=== PATIENT | female | born 1985 | race Caucasian/White ===

== ENCOUNTER → 2017-09-23 16:07 | Outpatient (CLI) | payer OTHER, MEDICAID, SELFPAY ==
--- NOTE | 2017-09-23 16:10 | DI.RAD.S_ITS ---
PROCEDURE: XR CERVICAL SPINE 4V OR 5V INDICATIONS: Cervical spondylosis with left upper extremity pain TECHNIQUE: 5 views of the cervical spine acquired. COMPARISON: None. FINDINGS: Bones: Straightening of cervical or doses may be positional or related to muscle spasm. No fractures or dislocations to the C7 level. Oblique images demonstrate mild bony foraminal stenoses at the C4-5 level, right greater than left. Disc spaces appear maintained. Soft tissues: No prevertebral soft tissue swelling. IMPRESSION: 1. Loss of lordosis. 2. Foraminal encroachment by uncinate spurring at the C4-5 level. Dictated by: Aaron Tabares M.D. on 09/23/2017 at 16:40 Approved by: Aaron Tabares M.D. on 09/23/2017 at 16:43
== END ==
PROVIDERS: PCP Internal Medicine Geriatric Medicine; Visit Provider Physical Medicine & Rehabilitation
DX: M47.812 Spondylosis without myelopathy or radiculopathy, cervical region (principal); M79.602 Pain in left arm
CPT/HCPCS: 72050

== ENCOUNTER → 2018-01-12 13:01 | Outpatient (CLI) | payer OTHER, MEDICAID, SELFPAY ==
--- NOTE | 2018-01-12 13:03 | DI.CT.S_ITS ---
PROCEDURE: CT CERVICAL SPINE WO CON INDICATIONS: Evaluation TECHNIQUE: Noncontrast 3 mm thick sections acquired from the skull base to the T4 level. Sagittal and coronal reformats were then constructed. For radiation dose reduction, the following was used: automated exposure control, adjustment of mA and/or kV according to patient size. COMPARISON: [facility], CR, XR CERVICAL SPINE 4V OR 5V, 09/23/2017, 15:48. FINDINGS: Image quality: Excellent. Bones: No fractures or dislocations. Visualized superior ribs are intact. Soft tissues: Prevertebral soft tissues are normal in thickness. No paravertebral hematomas. No apical pneumothoraces. IMPRESSION: No trauma found. Dictated by: Michael Perez M.D. on 01/12/2018 at 16:39 Approved by: Michael Perez M.D. on 01/12/2018 at 16:40
== END ==
PROVIDERS: PCP Internal Medicine Geriatric Medicine; Visit Provider Physical Medicine & Rehabilitation
DX: M47.812 Spondylosis without myelopathy or radiculopathy, cervical region (principal)
CPT/HCPCS: 72125